=== PATIENT | female | born 1995 | race Caucasian/White ===

== ENCOUNTER 2017-06-01 20:41 | Emergency (ER) | payer OTHER ==
[~2017-06-01] VITALS: Ht 162.6 cm; Wt 71.6 kg
--- NOTE | 2017-06-01 20:51 | PD ---
HPI Chief Complaint: Chest Pain Time Seen by Provider: 20:51 Travel History International Travel<30 days: No Contact w/Intl Traveler<30days: No Traveled to known affect area: No History of Present Illness HPI 21-year-old female came to the emergency room with history of chest tightness since this morning. Patient says she has history of asthma, anxiety and also has had ablation of her heart done in the past twice for SVT. She took 2 puffs of her albuterol inhaler midday because of the chest tightness but that did not help. When her symptoms were not getting any better she decided to come to the emergency room. She describes a chest tightness all over her chest. No aggravating or relieving symptoms identified. Vital signs were stable in the ER. [facility] Past Medical History Narrative Medical List of her past medical, surgical, social and family history is reviewed from the nursing note. Social History Tobacco Use: No Allergies-Medications (Allergen,Severity, Reaction): Coded Allergies: Sulfa (Sulfonamide Antibiotics) (Verified Allergy, Severe, Shortness of Breath, 06/01/17) ALSO "RASH AND ITCHING" Comments List of allergies reviewed from the nursing note. Reported Meds & Prescriptions Reported Meds & Active Scripts Active Reported Calcium Ascorbate 500 Mg Tab 500 Mg PO HS Magnesium Oxide 400 Mg Tab 400 Mg PO HS Dianelys (Drospirenone-Ethinyl Estradiol) 3-0.02 Mg Tab 1 Tab PO HS Fluoxetine (Fluoxetine HCl) 10 Mg Tab 10 Mg PO HS Narrative Medication List of her home medications reviewed from the nursing note. Review of Systems Except as stated in HPI: all other systems reviewed are Neg Cardiovascular: Positive: Chest Pain or Discomfort Respiratory: Positive: Shortness of Breath Physical Exam Narrative GENERAL: Awake, alert, anxious, moderate distress SKIN: Focused skin assessment warm/dry. HEAD: Atraumatic. Normocephalic. EYES: Pupils equal and round. No scleral icterus. No injection or drainage. ENT: No nasal bleeding or discharge. Mucous membranes pink and moist. NECK: Trachea midline. No JVD. CARDIOVASCULAR: Regular rate and rhythm. No murmur appreciated. RESPIRATORY: No accessory muscle use. Clear to auscultation. Breath sounds equal bilaterally. GASTROINTESTINAL: Abdomen soft, non-tender, nondistended. Hepatic and splenic margins not palpable. MUSCULOSKELETAL: No obvious deformities. No clubbing. No cyanosis. No edema. NEUROLOGICAL: Awake and alert. No obvious cranial nerve deficits. Motor grossly within normal limits. Normal speech. PSYCHIATRIC: Appropriate mood and affect; insight and judgment normal. Data Data Last Documented VS Orders Orders Electrocardiogram (06/01/17 20:57) Basic Metabolic Panel (Bmp) (06/01/17 20:57) Complete Blood Count With Diff (06/01/17 20:57) D-Dimer (06/01/17 20:57) Prothrombin Time / Inr (Pt) (06/01/17 20:57) Troponin I (06/01/17 20:57) Chest, Single Ap (06/01/17 20:57) Ecg Monitoring (06/01/17 20:57) Bilateral Bp Monitoring (06/01/17 20:57) Iv Access Insert/Monitor (06/01/17 20:57) Oximetry (06/01/17 20:57) Oxygen Administration (06/01/17 20:57) Ct Pulmonary Angiogram (06/01/17 ) Iohexol 350 Inj (Omnipaque 350 Inj) (06/01/17 23:00) Ed Discharge Order (06/02/17 00:11) Labs Laboratory Tests Test 06/01/17 20:55 White Blood Count 10.1 TH/MM3 Red Blood Count 3.70 MIL/MM3 Hemoglobin 12.0 GM/DL Hematocrit 33.9 % Mean Corpuscular Volume 91.6 FL Mean Corpuscular Hemoglobin 32.5 PG Mean Corpuscular Hemoglobin Concent 35.5 % Red Cell Distribution Width 12.8 % Platelet Count 242 TH/MM3 Mean Platelet Volume 9.0 FL Neutrophils (%) (Auto) 67.9 % Lymphocytes (%) (Auto) 24.1 % Monocytes (%) (Auto) 6.5 % Eosinophils (%) (Auto) 0.8 % Basophils (%) (Auto) 0.7 % Neutrophils # (Auto) 6.8 TH/MM3 Lymphocytes # (Auto) 2.4 TH/MM3 Monocytes # (Auto) 0.7 TH/MM3 Eosinophils # (Auto) 0.1 TH/MM3 Basophils # (Auto) 0.1 TH/MM3 CBC Comment DIFF FINAL Differential Comment Prothrombin Time 10.3 SEC Prothromb Time International Ratio 1.0 RATIO D-Dimer Quantitative (PE/DVT) 0.71 MG/L FEU Blood Urea Nitrogen 14 MG/DL Creatinine 0.76 MG/DL Random Glucose 87 MG/DL Calcium Level 8.7 MG/DL Sodium Level 137 MEQ/L Potassium Level 3.4 MEQ/L Chloride Level 105 MEQ/L Carbon Dioxide Level 22.5 MEQ/L Anion Gap 10 MEQ/L Estimat Glomerular Filtration Rate 95 ML/MIN Troponin I LESS THAN 0.02 NG/ML MDM Medical Decision Making Medical Screen Exam Complete: Yes Emergency Medical Condition: Yes Medical Record Reviewed: Yes Interpretation(s) Twelve-lead EKG was reviewed by me. Normal sinus rhythm, normal axis, nonspecific ST-T wave changes. Heart rate of 73 bpm. Differential Diagnosis PE, anxiety, pneumothorax, ACS Narrative Course 9:54 PM x-ray is within normal limits. Awaiting for the blood test result. I had asked the patient if she wanted something for her anxiety and she refused. If the blood work is within normal limit including the d-dimer patient will be discharged home. 11:21 PM awaiting for the pulmonary angiogram to be done and resulted which was ordered due to the elevated D-Dimer. 12:10 AM CTs negative for PE. Patient will be discharged home. Procedures EKG Prior to Arrival: No Diagnosis Primary Impression: Atypical chest pain Additional Impression: Anxiety Referrals: Primary Care Physician 2 days Additional Instructions: Return to the ER if condition worsens or any other new concerns. Otherwise follow-up with your primary care. Do not take any stimulants like caffeinated beverages, [id number] cold or flu medications, cigarettes, alcohol etc. Med/Other Pt SpecificInfo: No Change to Meds Disposition: 01 DISCHARGE HOME Condition: Stable Demian Tyson MD Jun 01, 2017 20:51
[2017-06-01 21:04] VITALS: BP 114/68; PULSE 69; TEMP 97.8; O2SAT 96
[2017-06-01 21:33] LABS: AUTOMATED NEUTROPHIL # 6.8 TH/MM3 (1.8-7.7); BASOPHIL # 0.1 TH/MM3 (0-0.2); BASOPHIL % 0.7 % (0.0-2.0); EOSINOPHIL # 0.1 TH/MM3 (0-0.4); EOSINOPHIL % 0.8 % (0.0-4.0); HEMATOCRIT 33.9 % (35.0-46.0); LYMPH % 24.1 % (9.0-44.0); LYMPHOCYTE # 2.4 TH/MM3 (1.0-4.8); MEAN CELL VOLUME 91.6 FL (80.0-100.0); MEAN CORPUSCULAR HEMOGLOBIN 32.5 PG (27.0-34.0); MEAN CORPUSCULAR HGB CONC 35.5 % (32.0-36.0); MONO % 6.5 % (0.0-8.0); MONOCYTE # 0.7 TH/MM3 (0-0.9); NEUT % 67.9 % (16.0-70.0); PLATELET COUNT 242 TH/MM3 (150-450); RED CELL DISTRIBUTION WIDTH 12.8 % (11.6-17.2); WHITE BLOOD COUNT 10.1 TH/MM3 (4.0-11.0)
[2017-06-01] MEDS ORDERED: ETHI1TAB3 PO (21:36)
[2017-06-01] MEDS ORDERED: FLUO10TA PO (21:36)
[2017-06-01] MEDS ORDERED: BIRTH CONTROL PILL PO (21:36)
[2017-06-01] MEDS ORDERED: CALC500T37 PO (21:36)
[2017-06-01] MEDS ORDERED: MAGN400T2 PO (21:36)
[2017-06-01 21:42] LABS: CHLORIDE 105 MEQ/L (98-107); SODIUM (NA) 137 MEQ/L (136-145)
[2017-06-01 21:45] LABS: BICARBONATE 22.5 MEQ/L (21.0-32.0); BLOOD UREA NITROGEN 14 MG/DL (7-18); CALCIUM 8.7 MG/DL (8.5-10.1); GLUCOSE,RANDOM 87 MG/DL (74-106)
--- NOTE | 2017-06-01 21:45 | RADRPT ---
EXAM DATE/TIME: 06/01/2017 21:07 [facility] COMPARISON: No previous studies available for comparison. INDICATIONS : Chest pain. MEDICAL HISTORY : Supraventricular tachycardia SURGICAL HISTORY : Ablation ENCOUNTER: Initial ACUITY: 1 day PAIN SCORE: 2/10 LOCATION: Bilateral chest FINDINGS: A single view of the chest demonstrates the lungs to be symmetrically aerated without evidence of mas s, infiltrate or effusion. The cardiomediastinal contours are unremarkable. Osseous structures are intact. CONCLUSION: No acute disease. Archie Singh MD on June 01, 2017 at 21:43 Board Certified Radiologist. This report was verified electronically.
[2017-06-01 21:48] LABS: CREATININE 0.76 MG/DL (0.50-1.00); GLOMERULAR FILTRATION RATE 95 ML/MIN (>89); PROTHROMBIN TIME - PATIENT 10.3 SEC (9.8-11.6)
[2017-06-01 21:51] VITALS: BP 114/72; PULSE 81; RESP 16; O2SAT 100
[2017-06-01 21:52] LABS: D-DIMER 0.71 MG/L FEU (0.00-0.50)
[2017-06-01 21:53] LABS: TROPONIN I LESS THAN 0.02 NG/ML (0.02-0.05)
[2017-06-01] MEDS ORDERED: IOHEXOL 350 MG/ML 10 ML VIAL (for RAD DIAG) IVCONTRAST ONE (23:00)
[2017-06-01 23:59] VITALS: BP 117/71; PULSE 64; RESP 16; O2SAT 99
--- NOTE | 2017-06-02 00:01 | RADRPT ---
EXAM DATE/TIME: 06/01/2017 22:54 [facility] COMPARISON: CHEST SINGLE AP, June 01, 2017, 21:07. INDICATIONS : Chest pain. Evaluate for embolism. IV CONTRAST: 75 cc Omnipaque 350 (iohexol) IV RADIATION DOSE: 8.85 CTDIvol (mGy) MEDICAL HISTORY : None SURGICAL HISTORY : None. ENCOUNTER: Initial ACUITY: 1 day PAIN SCALE: 9/10 LOCATION: Bilateral chest TECHNIQUE: Volumetric scanning of the chest was performed using a pulmonary embolism protocol MIP images were re constructed. Using automated exposure control and adjustment of the mA and/or kV according to patien t size, radiation dose was kept as low as reasonably achievable to obtain optimal diagnostic quality images. DICOM format image data is available electronically for review and comparison. Follow-up recommendations for detected pulmonary nodules are based at a minimum on nodule size and pa tient risk factors according to Fleischner Society Guidelines. FINDINGS: PULMONARY ARTERIES: No filling defects are seen in the pulmonary arteries through the segmental level. LUNGS: There is no consolidation or pneumothorax . No concerning pulmonary nodule is visualized. PLEURAE: There is no pleural thickening or pleural effusion. MEDIASTINUM: There is good visualization of the great vessels of the middle mediastinum. No evidence of mediastin al or hilar adenopathy/mass. MUSCULOSKELETAL: Within normal limits for patient age. MISCELLANEOUS: The visualized upper abdominal organs demonstrate no acute abnormality. CONCLUSION: Negative exam with no evidence of pulmonary embolism. Pavel Reed MD on June 01, 2017 at 23:59 Board Certified Radiologist. This report was verified electronically.
[2017-06-02 00:36] VITALS: BP 114/71
--- NOTE | 2017-06-02 18:26 | EKG ---
Date Performed: 06/01/2017 Time Performed: 20:47:43 PTAGE: 21 years EKG: Sinus rhythm POSSIBLE RIGHT VENTRICULAR CONDUCTION DELAY BORDERLINE ECG NO PREVIOUS TRACING DOCTOR: Janette Guadalupe Interpretating Date/Time 06/02/2017 18:21:09
== END 2017-06-02 00:46 | disposition home or self-care (01) ==
LOC: PHED 20:41
DX: R07.89 Other chest pain (principal); F41.9 Anxiety disorder, unspecified; R94.31 Abnormal electrocardiogram [ECG] [EKG]; J45.909 Unspecified asthma, uncomplicated
CPT/HCPCS: 71045; 71275; 80048; 84484; 85025; 85379; 85610; 93005; 99285; Q9967